=== PATIENT | male | born 1960 | race Caucasian/White ===

== ENCOUNTER → 2018-05-01 12:11 | Outpatient (CLI) | payer OTHER | END | disposition home or self-care (01) | LOC: D.RAD 12:11 → D.MRI 14:00 | DX: S43.492A Other sprain of left shoulder joint, initial encounter (principal); X58.XXXA Exposure to other specified factors, initial encounter ==

== ENCOUNTER 2018-08-19 08:10 | Day surgery (SDC) | payer OTHER ==
[~2018-08-19] VITALS: Ht 167.6 cm; Wt 90.9 kg
--- NOTE | ~2018-08-19 | OP ---
PATIENT NAME: NELA POWELL MEDICAL RECORD: [id number] :58 LOCATION:[facility] ADMISSION DATE: SURGEON: VERONICA MORALES MD DATE OF OPERATION: 08/19/2018 PREOPERATIVE DIAGNOSES: Residual shoulder pain with biceps tendinitis and SLAP lesion of the left shoulder. POSTOPERATIVE DIAGNOSES: Residual shoulder pain with biceps tendinitis and SLAP lesion of the left shoulder. PROCEDURES: 1. Arthroscopic biceps tenotomy of the left shoulder. 2. Arthroscopic debridement of SLAP lesion. SURGEON: Veronica Morales MD MANAGER RENTAL: HONORIO Garza INTRAOPERATIVE COMPLICATIONS: None. SUMMARY OF PATHOLOGIC FINDINGS: The patient was indeed found to have severe biceps tendinitis along with a SLAP lesion. 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 OPERATIVE SUMMARY IN DETAIL: After obtaining the appropriate preoperative orthopedic surgery consent as well as anesthetic consultation, evaluation, and clearance, the patient was brought to the operating room and placed on the operating table in the supine position. After adequate general laryngeal mask airway was administered, the patient was placed in right lateral decubitus position. All pressure points were well padded to include down leg peroneal pad as well as axillary roll. The patient was held firmly to the operating table using the vacuum pack suction system. Left upper extremity and shoulder were then prepped and draped in routine sterile fashion. The arm was held in the Arthrex traction boom at 30 degrees of forward flexion and 30 degrees of abduction with 10 pounds of traction laterally. Arthroscopy was established in the glenohumeral joint from the posterior portal. Anterior portal was established in anterior safe interval. At this point, diagnostic arthroscopy did show the patient's previous rotator cuff tear to be sound and solid. In fact, no evidence of any even sutures was seen. The labrum was probed and the patient did have a bicipital labral tear. The superior aspect of the glenoid was gently debrided for good bleeding bone for reapproximation naturally. The labrum was then taken down. The patient did have a posterior pannus with a small tear posteriorly and inferiorly. This was gently debrided as well. At this point, the Arthrex tissue ablation system was utilized to release the biceps tendon in its entirety. Having completed this, a quick look up in the subacromial space showed adequate decompression from prior and good rotator cuff anatomy. Arthroscopy portals were then closed in routine interrupted fashion using 4-0 Prolene. Sterile dressings were applied. The patient was awakened and taken to the recovery room in stable condition. All final needle and sponge counts were correct. TRANSINT:[id number] Voice Confirmation ID: [id number] DOCUMENT ID: [id number] OPERATIVE REPORT [id number] NELA POWELL MD, VERONICA SIMPSON CC: [id number] DICTATION DATE: 08/22/18 0643 DOPE POURER: 08/22/18 1547 [facility] 08/19/18 [id number] [place] [id number]
[~2018-08-19 08:10] MED LIST: TRICOR145 MG PO
[2018-08-19 09:22] VITALS: BP 128/66; Ht 167.6 cm; Wt 90.9 kg
[2018-08-19] MEDS ORDERED: NORCO 10-325 TA1 TAB PO (12:49)
== END 2018-08-19 16:00 | disposition home or self-care (01) ==
LOC: D.OPS 08:10 → D.PAN 10:15 → D.OPS 10:15 → D.PAN 11:30 → D.OPS 12:30 → D.PAN 12:30 → D.OPS 16:00
DX: M75.22 Bicipital tendinitis, left shoulder (principal); S43.432A Superior glenoid labrum lesion of left shoulder, initial encounter; X58.XXXA Exposure to other specified factors, initial encounter; Z01.812 Encounter for preprocedural laboratory examination